=== PATIENT | male | born 1955 | race Caucasian/White ===

== ENCOUNTER 2020-07-06 07:58 | Outpatient (RCR) | payer MEDICARE, OTHER, SELFPAY | END 2020-09-26 13:28 | disposition home or self-care (01) | LOC: HO.WCC 07:58 | PROVIDERS: PCP Family Medicine; Visit Provider Physician Assistant | DX: Z09 Encounter for follow-up examination after completed treatment for conditions other than malignant neoplasm (principal); I83.12 Varicose veins of left lower extremity with inflammation; I70.202 Unspecified atherosclerosis of native arteries of extremities, left leg; G62.9 Polyneuropathy, unspecified | CPT/HCPCS: 11042; 15271; 15275; 99203; 99212; 99213; Q4186 ==

== ENCOUNTER 2020-08-13 13:49 | Outpatient (REF) | payer MEDICARE, OTHER, SELFPAY ==
--- NOTE | 2020-08-13 | US_ITS ---
EXAMINATION: NONINVASIVE ASSESSMENT OF THE ARTERIES OF THE LEFT LOWER EXTREMITY CLINICAL INFORMATION: Left lower extremity ulcer TECHNIQUE: Duplex Doppler techniques with wave form analysis and measurement of velocities in the left common femoral, profunda femoral, superficial femoral, popliteal and tibial arteries. The study was performed only at rest. COMPARISON: None FINDINGS: a) AT REST: LEFT LEG: Left direct duplex Doppler findings: Diffuse vessel wall calcification. Widely patent common femoral superficial femoral, profunda and popliteal arteries. Diffuse narrowing of the visualized posterior tibial artery. 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 Patent common femoral, superficial femoral, popliteal, profunda and peroneal arteries with triphasic flow.
== END 2020-08-13 13:50 | disposition home or self-care (01) ==
LOC: HO.US 13:49
PROVIDERS: Visit Provider Physician Assistant
DX: L97.321 Non-pressure chronic ulcer of left ankle limited to breakdown of skin (principal); I87.312 Chronic venous hypertension (idiopathic) with ulcer of left lower extremity; I83.223 Varicose veins of left lower extremity with both ulcer of ankle and inflammation
CPT/HCPCS: 93926

== ENCOUNTER 2020-11-09 | Outpatient (RCR) | payer MEDICARE, OTHER, SELFPAY | END 2021-01-16 12:18 | disposition home or self-care (01) | LOC: HO.WCC | PROVIDERS: PCP Family Medicine; Visit Provider Physician Assistant | DX: I83.023 Varicose veins of left lower extremity with ulcer of ankle (principal); L97.322 Non-pressure chronic ulcer of left ankle with fat layer exposed; I87.012 Postthrombotic syndrome with ulcer of left lower extremity; D68.59 Other primary thrombophilia; G62.9 Polyneuropathy, unspecified; Z79.899 Other long term (current) drug therapy | CPT/HCPCS: 11042; 15271; 99212; Q4186; Q4187 ==